=== PATIENT | female | born 1960 | race Caucasian/White ===

== ENCOUNTER 2017-12-21 08:14 | Emergency (ER) | payer BC ==
[~2017-12-21] VITALS: Ht 154.9 cm; Wt 89.8 kg
--- OUTSIDE RECORDS SUMMARY | 2017-12-21 08:17 | XMS REPORT | Clinical Summary ---
Author Author [facility] Organization [facility] Address Unknown Phone Unavailable Care Team Providers Care Manager Commercial Sales Name Role Phone Asked, Pcp PCP Unavailable Allergies No Known Allergies Current Medications Prescription Sig. Disp. Refills Start End Date Status Date fluticasone (FLONASE) 50 SPRAY 1 SPRAY IEN BID UTD 3 11/26/19 Active mcg/actuation nasal spray 17 montelukast (SINGULAIR) TK 1 T PO QHS UTD 1 12/29/19 Active 10 mg tablet 17 phentermine (ADIPEX-P) TAKE ONE-HALF TO ONE (1/2 0 11/13/19 Active 37.5 mg tablet TO 1) TABLET(S) BY MOUTH 17 EVERY MORNING. conj Take 1 tablet by mouth 30 tablet 11 02/19/20 Active estrogens-bazedoxifene daily. 17 (DUAVEE) 0.45-20 mg tablet conj Take 1 tablet by mouth 30 tablet 0 01/18/20 02/19/20 Discontin estrogens-bazedoxifene daily. 17 17 ued (DUAVEE) 0.45-20 mg tablet Active Problems Problem Noted Date Perimenopausal vasomotor symptoms 02/03/2017 Encounters Date Type Specialty Care Team Description 02/18/2017 Telephone Obstetrics and Gynecology Mayo Gomez MD 02/03/2017 Office Visit Obstetrics and Gynecology Mayo Gomez MD Well woman exam with routine gynecological exam (Primary Dx); Breast cancer screening; Perimenopausal vasomotor symptoms 01/17/2017 Orders Only Obstetrics and Gynecology Cheri Almonte MA 01/17/2017 Telephone Obstetrics and Gynecology Nieves Polanco MA after 12/20/2016 Social History Tobacco Use Types Packs/Day Years Used Date Never Assessed Sex Assigned at Date Recorded Not on file Last Filed Vital Signs Vital Sign Reading Time Taken Blood Pressure 115/79 02/03/2017 9:55 AM CDT Pulse 65 02/03/2017 9:55 AM CDT Temperature - - Respiratory Rate - - Oxygen Saturation - - Inhaled Oxygen - - Concentration Weight 61.7 kg (136 lb) 02/03/2017 9:55 AM CDT Height 162.6 cm (5' 4") 02/03/2017 9:55 AM CDT Body Mass Index 23.34 02/03/2017 9:55 AM CDT Plan of Treatment Health Maintenance Due Date Last Done Comments CERVICAL CANCER SCREENING 1982 BREAST CANCER SCREENING 2011 COLON CANCER SCREENING 2011 SHINGRIX VACCINE (#1) 2011 INFLUENZA VACCINE 03/04/2018 Results Not on fileafter 12/20/2016 Insurance Payer Benefit Subscriber ID Type Phone Address Plan / Group BCBS BCBS xxxxxxxxxxxx PPO CHOICE PPO/MARIA FERNANDA PIERCE PPO [id number] [facility] [place] [phone]
[2017-12-21 08:49] LABS: BASOPHILS % 0.3 % (0.0-1.0); EOSINOPHILS # (AUTO) 0.1 (0.0-0.4); EOSINOPHILS % 1.7 % (0.0-6.0); HEMOGLOBIN 12.5 g/dL (12.0-16.0); LYMPHOCYTES # (AUTO) 1.4 (1.0-3.2); LYMPHOCYTES % 19.7 % (18.0-39.1); MEAN CORPUSCULAR HEMOGLOBIN 29.8 pg (28-32); MEAN CORPUSCULAR HGB CONC 33.8 g/dL (31-35); MEAN CORPUSCULAR VOLUME 88.3 fL (81-99); MONOCYTES # (AUTO) 0.4 (0.2-0.8); MONOCYTES % 5.8 % (4.4-11.3); NEUTROPHILS # (AUTO) 5.1 (2.1-6.9); NEUTROPHILS % 72.1 % (38.7-80.0); PLATELET COUNT 150 x10e3/uL (140-360); RED BLOOD COUNT 4.19 x10e6/uL (3.6-5.1); RED CELL DISTRIBUTION WIDTH 12.4 % (11.7-14.4)
[2017-12-21 09:08] LABS: ALANINE AMINOTRANSFERASE 15 IU/L (0-55); ALBUMIN 3.8 g/dL (3.5-5.0); ALBUMIN/GLOBULIN RATIO 1.2 (0.8-2.0); ALKALINE PHOSPHATASE 70 IU/L (40-150); ANION GAP 14.3 mmol/L (8-16); BLOOD UREA NITROGEN 9 mg/dL (7-26); BUN/CREATININE RATIO 13 (6-25); CALCIUM 9.4 mg/dL (8.4-10.2); CARBON DIOXIDE 26 mmol/L (22-29); CHLORIDE 103 mmol/L (98-107); CREATINE KINASE 91 IU/L (29-168); CREATININE, SERUM 0.67 mg/dL (0.57-1.11); EST GLOMERULAR FILTRATION RATE > 60 ML/MIN (60-); GLUCOSE 101 mg/dL (74-118); POTASSIUM 3.3 mmol/L (3.5-5.1); SODIUM 140 mmol/L (136-145)
--- NOTE | 2017-12-21 09:45 | Diagnostic Imaging Report ---
EXAMINATION: Head and cervical spine CT without contrast. HISTORY: Wall, but glaucoma head trauma COMPARISON: None. TECHNIQUE: Multidetector axial images were obtained without contrast from the foramen magnum to the vertex and through the cervical spine. The images were reconstructed using brain and bone algorithms. Thin section brain images were reformatted into coronal and sagittal planes. HEAD CT FINDINGS: Skull: No lytic or blastic lesions. No fractures. Parenchyma: Normal. No mass, hemorrhage or CT evidence of acute vascular insult. Brain volume: Normal for age. Ventricles: No hydrocephalus or displacement. Arteries: No density suggestive of thrombus. Dural sinuses: No abnormal density. Extra-axial spaces: No abnormal density. Foramen magnum: No mass, Chiari malformation, or basilar invagination. Sella: No obvious mass. Paranasal/mastoid sinuses: Imaged portions unremarkable. CERVICAL SPINE CT FINDINGS: Alignment:Normal alignment and lordosis. Soft tissues: Normal. Vertebrae: Normal height and density. No acute fracture, infection or neoplasm. Degenerative changes: C1-C2 to C3-C4: Normal. C4-C5: Minimal vascular crowding and minimal age-indeterminate likely chronic and degenerative anterolisthesis. C5-C6: Disc osteophyte complex formation, bilateral uncovertebral and facet arthrosis. Moderate right and severe left foraminal stenoses. No significant canal stenosis. C6-C7: Mild bilateral uncovertebral stenoses. Mild left foraminal stenosis. C7-T1: Normal. IMPRESSION: Head CT: No intracranial abnormality, particularly no acute traumatic hemorrhage. Cervical spine CT: 1. No acute fractures or dislocations. 2. Chronic degenerative changes as described. Note: Acute post traumatic spinal cord, vascular or ligamentous injury cannot adequately be assessed with CT. Signed by: Dr. Hanane Garcia M.D. on 12/21/2017 9:42 AM
[2017-12-21] MEDS ORDERED: KETOROLAC TROMETHAMINE 30 MG/ML VIAL IV STA (09:46)
[2017-12-21] MEDS ORDERED: LIDOCAINE 1% W/EPINEPHRINE 20 ML VIAL INJ ONE (10:00)
[2017-12-21] MEDS ORDERED: TETANUS/DIPHTHERIA TOX ADULT 0.5 ML SYR IM ONE (10:30)
[2017-12-21 11:09] LABS: BILIRUBIN,URINE NEGATIVE (NEGATIVE); CLARITY,URINE CLEAR (CLEAR); COLOR,URINE YELLOW (YELLOW); KETONES,URINE NEGATIVE (NEGATIVE); LEUKOCYTE ESTERASE ,URINE NEGATIVE (NEGATIVE); NITRITE,URINE NEGATIVE (NEGATIVE); PROTEIN,URINE DIPSTICK NEGATIVE (NEGATIVE); URINE UROBILINOGEN 0.2 mg/dL (0.2 - 1)
[2017-12-21 11:20] LABS: BACTERIA,URINE FEW /HPF
[2017-12-21] MEDS ORDERED: HYDROCODONE/APAP 5MG-325MG TAB PO ONE (12:00)
--- NOTE | 2017-12-21 12:01 | Diagnostic Imaging Report ---
Shoulder 2 views CPT code: 24238 Indication:Fall Comparison: None. Findings: 2 views of the right shoulder were obtained. Bones are normally aligned. Fracture or calcification adjacent to the greater tuberosity measures about 10 mm, visible only on internal rotation. Visualized chest is unremarkable IMPRESSION: Calcific tendinosis versus fracture from the greater tuberosity. No dislocation. Signed by: Dr. Katarina Delgado MD on 12/21/2017 11:57 AM
[2017-12-21 12:07] VITALS: BP 146/80
== END 2017-12-21 12:32 | disposition home or self-care (01) ==
LOC: ER 08:14
DX: R55 Syncope and collapse (principal); R11.0 Nausea; R51 Headache; S01.01XA Laceration without foreign body of scalp, initial encounter; M25.511 Pain in right shoulder; W18.2XXA Fall in (into) shower or empty bathtub, initial encounter; Y93.E1 Activity, personal bathing and showering; Y92.002 Bathroom of unspecified non-institutional (private) residence as the place of occurrence of the external cause
CPT/HCPCS: 12002; 36415; 70450; 72125; 73030; 80053; 81001; 82550; 82553; 84484; 85025; 90471; 90714; 93005; 99284; J1885

== ENCOUNTER 2018-01-29 13:59 | Outpatient (RCR) | payer BC | END 2018-01-31 | LOC: PT 13:59 | PROVIDERS: ATTEND Specialist | DX: M75.31 Calcific tendinitis of right shoulder (principal); M25.511 Pain in right shoulder; M25.611 Stiffness of right shoulder, not elsewhere classified; M62.81 Muscle weakness (generalized) ==

== ENCOUNTER 2018-02-10 14:00 | Outpatient (RCR) | payer BC | END 2018-03-03 | LOC: PT 14:00 | PROVIDERS: ATTEND Specialist | DX: M75.31 Calcific tendinitis of right shoulder (principal); M25.511 Pain in right shoulder; M25.611 Stiffness of right shoulder, not elsewhere classified; M62.81 Muscle weakness (generalized) ==